=== PATIENT | female | born 1990 | race Two or more races ===

== ENCOUNTER 2020-06-15 09:37 | Emergency (ER) | payer MEDICAID, OTHER ==
[~2020-06-15] VITALS: Ht 162.6 cm; Wt 86.2 kg
[2020-06-15 09:41] VITALS: BP 130/68
[2020-06-15] MEDS ORDERED: IBUPROFEN 600 MG TAB PO ONE (11:00)
== END 2020-06-15 12:07 | disposition home or self-care (01) ==
LOC: ER 09:37
DX: S63.501A Unspecified sprain of right wrist, initial encounter (principal); X58.XXXA Exposure to other specified factors, initial encounter; Y93.89 Activity, other specified; Y92.89 Other specified places as the place of occurrence of the external cause; Y99.8 Other external cause status
CPT/HCPCS: 73090; 73110; 81025

== ENCOUNTER 2020-08-11 08:36 | Emergency (ER) | payer MEDICAID ==
[~2020-08-11] VITALS: Ht 162.6 cm; Wt 90.7 kg
[2020-08-11 09:45] VITALS: BP 118/51
== END 2020-08-11 10:32 | disposition home or self-care (01) ==
LOC: ER 08:36
DX: S16.1XXA Strain of muscle, fascia and tendon at neck level, initial encounter (principal); S46.811A Strain of other muscles, fascia and tendons at shoulder and upper arm level, right arm, initial encounter; X58.XXXA Exposure to other specified factors, initial encounter; Y93.89 Activity, other specified; Y92.89 Other specified places as the place of occurrence of the external cause; Y99.8 Other external cause status
CPT/HCPCS: 72040

== ENCOUNTER 2022-12-13 08:31 | Emergency (ER) | payer MEDICAID ==
[~2022-12-13] VITALS: Ht 160 cm; Wt 95.3 kg
[2022-12-13 09:04] LABS: Urine Bacteria FEW /hpf (None Seen); Urine Blood 1+ /uL (Negative); Urine Clarity HAZY (Clear); Urine Color Yellow (Yellow); Urine Mucus FEW (None Seen); Urine Protein, UAD TRACE (Negative); Urine Specific Gravity 1.029 (1.001-1.035); Urine WBC 4 /hpf (0 - 5)
[2022-12-13 09:11] VITALS: BP 116/83; TEMP 98.5
[2022-12-13 09:14] VITALS: RESP 16; O2SAT 96
[2022-12-13] MEDS ORDERED: DexAMETHasone SOD PHOS 10MG/1ML VIAL INJ IM ONE (10:30)
[2022-12-13] MEDS ORDERED: KETOROLAC TROMETH 60MG/2ML VIAL IM ONE (10:30)
[2022-12-13] MEDS ORDERED: IBUP1TAB5 PO (10:31)
[2022-12-13] MEDS ORDERED: NITR-87 PO (10:31)
[2022-12-13] MEDS ORDERED: CYCL-611 PO (10:31)
== END 2022-12-13 18:27 | disposition home or self-care (01) ==
LOC: ER 08:31
DX: S33.5XXA Sprain of ligaments of lumbar spine, initial encounter (principal); N39.0 Urinary tract infection, site not specified; X50.0XXA Overexertion from strenuous movement or load, initial encounter; Y93.89 Activity, other specified; Y92.89 Other specified places as the place of occurrence of the external cause; Y99.8 Other external cause status
CPT/HCPCS: 72100; 81001; 99284; J1100; J1885

== ENCOUNTER 2023-02-07 09:17 | Emergency (ER) | payer MEDICAID ==
[~2023-02-07] VITALS: Ht 160 cm; Wt 97.5 kg
[~2023-02-07 09:17] MED LIST: CYCL-611 PO; IBUP1TAB5 PO; NITR-87 PO
[2023-02-07 10:19] VITALS: BP 111/56; PULSE 83; RESP 20; TEMP 97.4; O2SAT 99
[2023-02-07] MEDS ORDERED: IBUP1TAB5 PO (10:39)
[2023-02-07] MEDS ORDERED: METH-1181 PO (10:39)
== END 2023-02-07 10:40 | disposition home or self-care (01) ==
LOC: ER 09:17
DX: S76.312A Strain of muscle, fascia and tendon of the posterior muscle group at thigh level, left thigh, initial encounter (principal); Z79.1 Long term (current) use of non-steroidal anti-inflammatories (NSAID); Z79.899 Other long term (current) drug therapy; X50.1XXA Overexertion from prolonged static or awkward postures, initial encounter; Y93.89 Activity, other specified; Y92.89 Other specified places as the place of occurrence of the external cause; Y99.8 Other external cause status

== ENCOUNTER 2023-06-05 19:05 | Emergency (ER) | payer MEDICAID ==
[~2023-06-05] VITALS: Ht 160 cm; Wt 91.3 kg
[~2023-06-05 19:05] MED LIST changes: +ACET-1304 PO; +CEPH500C PO; +METH-1181 PO
[2023-06-05 21:21] LABS: Basophils # (auto) 0 10 ^3/uL (0-0.2); Basophils % (auto) 0.5 % (0.0-2.0); Eosinophils # (auto) 0 10 ^3/uL (0-0.8); Eosinophils % (auto) 0.1 % (0.0-7.0); Hemoglobin 13.4 g/dL (12.2-16.2); Lymphocytes # (auto) 1.3 10 ^3/uL (0.4-5.4); Lymphocytes % (auto) 29.4 % (10.0-50.0); Mean Corpuscular Hemoglobin 27.6 pg (28.0-32.0); Mean Corpuscular Hgb Conc. 33.6 g/dL (32.0-36.0); Mean Corpuscular Volume 82.1 fL (80.0-100.0); Monocytes # (auto) 0.5 10 ^3/uL (0-1.3); Monocytes % (auto) 10.9 % (0.0-12.0); Neutrophils # (auto) 2.7 10 ^3/uL (1.6-8.6); Neutrophils % (auto) 59.1 % (37.0-80.0); Nucleated Red Blood Cells % 0.5 %; Red Blood Cells 4.88 10^6/uL (4.0-5.20); Red Cell Distribution Width 15.3 % (11.8-14.3); White Blood Cell 4.5 10^3/uL (4.4-10.8)
[2023-06-05 21:49] LABS: Urine Bacteria FEW /hpf (None Seen); Urine Blood Negative /uL (Negative); Urine Clarity Turbid (Clear); Urine Color Yellow (Yellow); Urine Mucus FEW (None Seen); Urine Protein, UAD 2+ (Negative); Urine Specific Gravity 1.029 (1.001-1.035); Urine Urobilinogen 4 mg/dL (Negative); Urine WBC 7 /hpf (0 - 5)
[2023-06-05 21:49] LABS: Chloride 101 mmol/L (98-107); Potassium 3.4 mmol/L (3.5-5.1); Sodium 132 mmol/L (136-145)
[2023-06-05 21:50] LABS: Anion Gap 12 (5-15); Calcium 9.8 mg/dL (8.7-10.4); Carbon Dioxide 19 mmol/L (20-30)
[2023-06-05 21:55] LABS: Glucose 85 mg/dL (74-106)
[2023-06-05] MEDS: SODIUM CHLORIDE 0.9% 1,000 ML IV ONE (21:55)
[2023-06-05] MEDS ORDERED: ONDANSETRON HCL 4 MG/2 ML VIAL ONE (21:55)
[2023-06-05] MEDS: ONDANSETRON HCL 4 MG/2 ML VIAL IV ONE (21:55)
[2023-06-05 22:00] LABS: BUN/Creatinine Ratio 7.7 (10.0-20.0); Blood Urea Nitrogen < 5 mg/dL (9-23)
[2023-06-05] MEDS ORDERED: ZOFR4T PO (22:08)
[2023-06-05 23:00] VITALS: BP 122/79; PULSE 100; RESP 16; TEMP 97.5; O2SAT 100
== END 2023-06-05 23:06 | disposition home or self-care (01) ==
LOC: ER 19:05
DX: O20.8 Other hemorrhage in early pregnancy (principal); Z3A.16 16 weeks gestation of pregnancy
CPT/HCPCS: 36415; 80048; 81001; 85025; 96361; 96374; 99283; J2405; J7030

== ENCOUNTER 2023-09-16 17:46 | Observation (INO) | payer MEDICAID ==
[~2023-09-16] VITALS: Ht 160 cm; Wt 94.3 kg
[~2023-09-16 17:46] MED LIST changes: +ZOFR4T PO
[2023-09-16] MEDS ORDERED: LACTATED RINGER'S 1,000 ML IV SCH (19:15)
[2023-09-16] MEDS: TERBUTALINE SULFATE 1 MG/ML 1ML VIAL SC ONE ×2 (19:25)
[2023-09-16 19:28] LABS: Urine Bacteria MANY /hpf (None Seen); Urine Blood Negative /uL (Negative); Urine Clarity Ex.Turbid (Clear); Urine Color Yellow (Yellow); Urine Mucus FEW (None Seen); Urine Protein, UAD 1+ (Negative); Urine Specific Gravity 1.026 (1.001-1.035); Urine Urobilinogen 12 mg/dL (Negative); Urine WBC 37 /hpf (0 - 5); Urine pH 6.5 (5.0-9.0)
[2023-09-16] MEDS: LACTATED RINGER'S 1,000 ML IV ONE (20:08)
[2023-09-16] MEDS ORDERED: PREN-96 PO (20:56)
== END 2023-09-16 21:16 | disposition home or self-care (01) ==
LOC: LDRP 17:46
PROVIDERS: ADMIT Obstetrics & Gynecology; ATTEND Obstetrics & Gynecology
DX: O60.03 Preterm labor without delivery, third trimester (principal); O30.003 Twin pregnancy, unspecified number of placenta and unspecified number of amniotic sacs, third trimester; Z3A.31 31 weeks gestation of pregnancy
CPT/HCPCS: 59025; 76815; 81001; 81002; 94760; 96360; 96361; 96372; G0378; J3105